=== PATIENT | female | born 1965 | race Caucasian/White ===

== ENCOUNTER → 2021-09-17 13:28 | Outpatient (CLI) | payer BC, SELFPAY ==
--- NOTE | 2021-09-17 13:41 | XR_ITS ---
FINAL REPORT CLINICAL HISTORY: pain FINDINGS: Right foot Three weight-bearing views were obtained. There is no acute fracture or dislocation. There is a large plantar spur. There is a small accessory navicular. There are mild hypertrophic changes at the 1st MTP joint. There is no acute soft tissue abnormality. IMPRESSION: Mild hypertrophic changes at the 1st MTP joint. Large plantar spur. Reviewed, Interpreted and Dictated by Yariel Belle MD Transcribed by Vickey Miller Authenticated by Yariel Belle MD on 09/17/2021 03:27:45 PM [facility]
--- NOTE | 2021-09-17 13:41 | XR_ITS ---
FINAL REPORT CLINICAL HISTORY: pain FINDINGS: Right ankle Three weight-bearing views were obtained. There is no acute fracture or dislocation. There is a large plantar spur. The visualized joint spaces are preserved. There is no acute soft tissue abnormality. IMPRESSION: Large plantar spur. Reviewed, Interpreted and Dictated by Yariel Belle MD Transcribed by Vickey Miller Authenticated by Yariel Belle MD on 09/17/2021 03:27:46 PM [facility]
--- NOTE | 2021-09-17 13:41 | XR_ITS ---
FINAL REPORT CLINICAL HISTORY: pain FINDINGS: Left ankle Three weight-bearing views were obtained. There is no acute fracture or dislocation. There is a plantar spur. The visualized joint spaces are preserved. There is no acute soft tissue abnormality. IMPRESSION: No acute bony abnormality. Reviewed, Interpreted and Dictated by Yariel Belle MD Transcribed by Vickey Miller Authenticated by Yariel Belle MD on 09/17/2021 03:27:47 PM [facility]
--- NOTE | 2021-09-17 13:41 | XR_ITS ---
FINAL REPORT CLINICAL HISTORY: pain FINDINGS: Left foot Three weight-bearing views were obtained. There is no acute fracture or dislocation. The visualized joint spaces are preserved. There is no acute soft tissue abnormality. IMPRESSION: No acute bony abnormality. Reviewed, Interpreted and Dictated by Yariel Belle MD Transcribed by Vickey Miller Authenticated by Yariel Belle MD on 09/17/2021 03:27:46 PM [facility]
== END ==
PROVIDERS: PCP Family Medicine; Visit Provider Podiatrist
DX: M79.672 Pain in left foot (principal); M79.671 Pain in right foot; M25.572 Pain in left ankle and joints of left foot; M25.571 Pain in right ankle and joints of right foot
CPT/HCPCS: 73610; 73630